=== PATIENT | male | born 1980 | race Caucasian/White ===

== ENCOUNTER → 2016-08-30 | Outpatient (CLI) | payer OTHER | LOC: RAD 12:07 | DX: R04.2 Hemoptysis (principal) ==

== ENCOUNTER → 2017-12-12 | Outpatient (CLI) | payer BC ==
[2017-12-12 16:52] LABS: EOS # 0.1 (0.04-0.40); EOS % 0.7 % (0.0-4.0); HEMATOCRIT 48.5 % (42.0-52.0); HEMOGLOBIN 16.2 g/dL (13.5-18.0); LYMPH# 2.3 (1.50-4.00); MEAN CELL VOLUME 91 fl (78-100); MEAN CORPUSCULAR HEMOGLOBIN 31 pg (27-31); MEAN CORPUSCULAR HGB CONC 33 g/dL (33-37); MEAN PLATELET VOLUME 8.9 fl (7.4-10.4); MONO # 0.9 (0.20-0.80); NEU # 8.7 (1.40-6.50); PLATELET COUNT 248 K/mm3 (130-400); RED BLOOD COUNT 5.31 M/mm3 (4.20-5.60); RED CELL DISTRIBUTION WIDTH 13.4 % (11.5-14.5); WHITE BLOOD COUNT 12.1 K/mm3 (4.8-10.8)
[2017-12-12 17:22] LABS: ALBUMIN 4.5 g/dL (3.5-5.0); TOTAL BILIRUBIN 0.4 mg/dL (0.2-1.3); TOTAL PROTEIN 7.8 g/dL (6.3-8.2)
[2017-12-12 19:18] LABS: ERYTHROCYTE SEDIMENTATION RATE 1 mm/hr (0-15)
[2017-12-12 19:32] LABS: URINE APPEARANCE CLEAR; URINE BILIRUBIN NEGATIVE (NEGATIVE); URINE BLOOD TRACE (NEGATIVE); URINE COLOR YELLOW; URINE GLUCOSE NEGATIVE (NEGATIVE); URINE KETONE NEGATIVE (NEGATIVE); URINE LEUKOCYTE ESTERASE NEGATIVE (NEGATIVE); URINE NITRATE NEGATIVE (NEGATIVE); URINE PROTEIN(semi-quant) NEGATIVE (NEGATIVE); URINE UROBILINOGEN NORMAL (NORMAL); URINE WBC 0-1 /hpf (0-3)
[2017-12-13 09:36] LABS: C-REACTIVE PROTEIN XXX
[2017-12-13 23:27] LABS: ANA SCREEN with REFLEX Negative (Negative)
== END ==
LOC: RAD 16:22
PROVIDERS: Internal Medicine
DX: Z00.00 Encounter for general adult medical examination without abnormal findings (principal); M79.642 Pain in left hand; M79.641 Pain in right hand; M79.671 Pain in right foot

== ENCOUNTER → 2018-06-29 | Outpatient (CLI) | payer BC | LOC: RAD 10:36 | DX: M54.2 Cervicalgia (principal); M25.511 Pain in right shoulder; M25.521 Pain in right elbow; W00.0XXA Fall on same level due to ice and snow, initial encounter ==

== ENCOUNTER → 2018-09-17 | Outpatient (CLI) | payer BC | LOC: RAD 08:57 | DX: J98.4 Other disorders of lung (principal) ==

== ENCOUNTER → 2019-03-01 | Outpatient (CLI) | payer BC ==
[2019-03-01 13:01] LABS: EOS # 0.1 (0.04-0.40); EOS % 0.7 % (0.0-4.0); HEMATOCRIT 46.7 % (42.0-52.0); HEMOGLOBIN 15.5 g/dL (13.5-18.0); MEAN CELL VOLUME 91 fl (78-100); MEAN CORPUSCULAR HEMOGLOBIN 30 pg (27-31); MEAN CORPUSCULAR HGB CONC 33 g/dL (33-37); MONO # 0.9 (0.20-0.80); PLATELET COUNT 269 K/mm3 (130-400); RED BLOOD COUNT 5.16 M/mm3 (4.20-5.60); RED CELL DISTRIBUTION WIDTH 13.7 % (11.5-14.5); WHITE BLOOD COUNT 12.2 K/mm3 (4.8-10.8)
[2019-03-01 13:02] LABS: NEU # 9.1 (1.40-6.50)
[2019-03-01 13:10] LABS: POTASSIUM 4.2 mmol/L (3.5-5.1)
[2019-03-01 13:11] LABS: ALBUMIN 4.3 g/dL (3.5-5.0)
[2019-03-01 13:12] LABS: CALCIUM 9.4 mg/dL (8.3-10.5)
[2019-03-01 13:13] LABS: TOTAL PROTEIN 7.3 g/dL (6.4-8.3)
[2019-03-01 13:15] LABS: TOTAL BILIRUBIN 0.2 mg/dL (0.2-1.2)
== END ==
LOC: LAB 12:38
PROVIDERS: Internal Medicine
DX: Z00.00 Encounter for general adult medical examination without abnormal findings (principal)

== ENCOUNTER → 2019-07-29 | Outpatient (CLI) | payer BC | LOC: RAD 08:12 | DX: S62.111A Displaced fracture of triquetrum [cuneiform] bone, right wrist, initial encounter for closed fracture (principal); S49.91XA Unspecified injury of right shoulder and upper arm, initial encounter; S59.911A Unspecified injury of right forearm, initial encounter; S69.91XA Unspecified injury of right wrist, hand and finger(s), initial encounter ==

== ENCOUNTER → 2020-12-03 | Outpatient (CLI) | payer BC ==
[2020-12-03 09:36] LABS: POTASSIUM 4.6 mmol/L (3.5-5.1)
[2020-12-03 09:37] LABS: CALCIUM 8.8 mg/dL (8.3-10.5)
[2020-12-03 09:39] LABS: TOTAL PROTEIN 6.9 g/dL (6.4-8.3)
[2020-12-03 09:40] LABS: TOTAL BILIRUBIN 0.2 mg/dL (0.2-1.2)
[2020-12-03 09:49] LABS: BASO # 0.05 (0.02-0.10); EOS # 0.09 (0.04-0.40); HEMATOCRIT 48.3 % (42.0-52.0); LYMPH# 1.69 (1.50-4.00); MEAN CELL VOLUME 92 fl (78-100); MEAN CORPUSCULAR HEMOGLOBIN 30 pg (27-31); MEAN CORPUSCULAR HGB CONC 33 g/dL (33-37); MEAN PLATELET VOLUME 8.7 fl (7.4-10.4); MONO # 0.84 (0.20-0.80); NEU # 5.87 (1.40-6.50); PLATELET COUNT 232 K/mm3 (130-400); RED BLOOD COUNT 5.27 M/mm3 (4.20-5.60); RED CELL DISTRIBUTION WIDTH 12.9 % (11.5-14.5); WHITE BLOOD COUNT 8.6 K/mm3 (4.8-10.8)
== END ==
LOC: LAB 08:58
PROVIDERS: Internal Medicine
DX: Z00.00 Encounter for general adult medical examination without abnormal findings (principal); Z12.5 Encounter for screening for malignant neoplasm of prostate

== ENCOUNTER → 2020-12-30 | Outpatient (CLI) | payer BC ==
[2020-12-30 15:21] LABS: ALBUMIN 4.5 g/dL (3.5-5.0); POTASSIUM 4.6 mmol/L (3.5-5.1)
[2020-12-30 15:22] LABS: CALCIUM 9.6 mg/dL (8.3-10.5)
[2020-12-30 15:23] LABS: BASO # 0.05 (0.02-0.10); EOS # 0.12 (0.04-0.40); EOS % 1.3 % (0.0-4.0); HEMATOCRIT 49.5 % (42.0-52.0); HEMOGLOBIN 16.4 g/dL (13.5-18.0); LYMPH# 2.33 (1.50-4.00); MEAN CELL VOLUME 92 fl (78-100); MEAN CORPUSCULAR HEMOGLOBIN 30 pg (27-31); MEAN CORPUSCULAR HGB CONC 33 g/dL (33-37); MEAN PLATELET VOLUME 8.5 fl (7.4-10.4); MONO # 0.88 (0.20-0.80); NEU # 6.17 (1.40-6.50); PLATELET COUNT 263 K/mm3 (130-400); WHITE BLOOD COUNT 9.6 K/mm3 (4.8-10.8)
[2020-12-30 15:24] LABS: TOTAL PROTEIN 7.7 g/dL (6.4-8.3)
[2020-12-30 15:25] LABS: TOTAL BILIRUBIN 0.4 mg/dL (0.2-1.2)
== END ==
LOC: LAB 14:51 → RAD 14:51
PROVIDERS: Nurse Practitioner
DX: R10.32 Left lower quadrant pain (principal); R31.9 Hematuria, unspecified

== ENCOUNTER → 2020-12-31 | Outpatient (CLI) | payer BC | LOC: RAD 13:14 | DX: I86.1 Scrotal varices (principal) ==

== ENCOUNTER → 2021-06-29 | Outpatient (CLI) | payer OTHER | LOC: LAB 15:19 | DX: U07.1 COVID-19 (principal) ==

== ENCOUNTER → 2021-12-07 | Outpatient (CLI) | payer OTHER | LOC: RAD 12:08 | DX: S29.9XXA Unspecified injury of thorax, initial encounter (principal); M25.561 Pain in right knee; M25.511 Pain in right shoulder; X58.XXXA Exposure to other specified factors, initial encounter ==

== ENCOUNTER → 2021-12-23 | Outpatient (CLI) | payer OTHER ==
[2021-12-23 17:27] LABS: BASO # 0.04 K/mm3 (0.02-0.10); EOS # 0.14 K/mm3 (0.04-0.40); EOS % 1.6 % (0.0-4.0); HEMATOCRIT 47.6 % (42.0-52.0); HEMOGLOBIN 15.8 g/dL (13.5-18.0); LYMPH# 2.61 K/mm3 (1.50-4.00); MEAN CELL VOLUME 93 fl (78-100); MEAN CORPUSCULAR HEMOGLOBIN 31 pg (27-31); MEAN CORPUSCULAR HGB CONC 33 g/dL (33-37); MEAN PLATELET VOLUME 8.6 fl (7.4-10.4); MONO # 0.76 K/mm3 (0.20-0.80); NEU # 5.26 K/mm3 (1.40-6.50); PLATELET COUNT 216 K/mm3 (130-400); RED BLOOD COUNT 5.14 M/mm3 (4.20-5.60); RED CELL DISTRIBUTION WIDTH 12.1 % (11.5-14.5); WHITE BLOOD COUNT 8.8 K/mm3 (4.8-10.8)
[2021-12-23 17:32] LABS: POTASSIUM 4.3 mmol/L (3.5-5.1)
[2021-12-23 17:33] LABS: ALBUMIN 4.4 g/dL (3.5-5.0)
[2021-12-23 17:34] LABS: CALCIUM 9.2 mg/dL (8.3-10.5)
[2021-12-23 17:35] LABS: TOTAL PROTEIN 7.2 g/dL (6.4-8.3)
[2021-12-23 17:37] LABS: TOTAL BILIRUBIN 0.4 mg/dL (0.2-1.2)
== END ==
LOC: RAD 16:59 → LAB 16:59
PROVIDERS: Internal Medicine
DX: Z00.00 Encounter for general adult medical examination without abnormal findings (principal); Z12.5 Encounter for screening for malignant neoplasm of prostate; F31.62 Bipolar disorder, current episode mixed, moderate; M79.641 Pain in right hand; M79.642 Pain in left hand; M79.672 Pain in left foot; M79.671 Pain in right foot; Z28.39 Other underimmunization status

== ENCOUNTER → 2023-07-06 | Outpatient (CLI) | payer BC | LOC: RAD 16:21 | DX: M54.50 Low back pain, unspecified (principal) ==

== ENCOUNTER → 2023-09-27 | Outpatient (CLI) | payer BC | LOC: CARDREHAB 15:11 | DX: G47.33 Obstructive sleep apnea (adult) (pediatric) (principal) | CPT/HCPCS: G0399 ==

== ENCOUNTER → 2023-12-26 | Outpatient (CLI) | payer BC | LOC: LAB 15:58 | DX: K13.0 Diseases of lips (principal) ==

== ENCOUNTER → 2024-01-26 | Outpatient (CLI) | payer BC | LOC: RAD 08:50 | DX: M79.89 Other specified soft tissue disorders (principal) ==